=== PATIENT | female | born 1970 | race African-American/Black ===

== ENCOUNTER 2017-02-09 11:54 | Emergency (ER) | payer BC, OTHER ==
[2017-02-09 12:01] VITALS: BP 148/78; PULSE 73; TEMP 98.2; BMI 26.5
[2017-02-09] MEDS ORDERED: DIPHTH,PERTUSS(ACELL),TET 0.5 ML DISP.SYRIN IM ONE (12:43)
--- NOTE | 2017-02-09 12:49 | PDOC ---
History of Present Illness - General Chief Complaint: Injury Stated Complaint: RT THUMB LACERATION Time Seen by Provider: 02/09/17 12:11 History Source: Patient - History of Present Illness Timing/Duration: reports: this morning Past History - Past Medical History Allergies/Adverse Reactions: Allergies Allergy/AdvReac Type Severity Reaction Status Date / Time No Known Allergies Allergy Verified 02/09/17 11:56 Home Medications: Ambulatory Orders No Home Medications 0 dose .ROUTE UTDICT 11/06/12 Other medical history: NONE - Surgical History Abdominal Surgery: Yes (GASTRIC BYPASS,LT OVARY REMOVED) - Suicide/Smoking/Psychosocial Hx Smoking Status: No Smoking History: Never smoked Number of Cigarettes Smoked Daily: 0 Information on smoking cessation initiated: No Hx Alcohol Use: No Drug/Substance Use Hx: No Review of Systems - Review of Systems Integumentary: Yes: Other (nail injury) *Physical Exam - Vital Signs Last Vital Signs Temp Pulse Resp BP Pulse Ox 98.2 F 73 18 148/78 100 02/09/17 11:57 02/09/17 11:57 02/09/17 11:57 02/09/17 11:57 02/09/17 11:57 - Physical Exam General Appearance: Yes: Appropriately Dressed. No: Apparent Distress HEENT: positive: Normal Voice Respiratory/Chest: negative: Respiratory Distress Extremity: positive: Other (nail to R thumb intact w/ minimal bloody drainage from the lateral nail folds bilaterally and free edge of nail, no subungual hematoma) Integumentary: positive: Dry, Warm Neurologic: positive: Fully Oriented, Alert, Normal Mood/Affect Medical Decision Making - Medical Decision Making 02/09/17 12:44 46-year-old female, no significant history here with right thumb injury. Patient states while cleaning her stove this morning, a piece of sharp metal struck finger and has noted bleeding under nail of right thumb since. See exam Nail bed injury No subungal hematoma but minimal bloody drainage from lateral nail folds and free edge of nail, nail intact w/ no obvious injury to nail itself -Local wound care and compression in ED, no need for nail removal per d/w Dr Grayson in main ED -tetanus updated -Pt to return for wound check as needed 02/09/17 12:51 *DC/Admit/Observation/Transfer Diagnosis at time of Disposition: Nail bed injury - Discharge Dispostion Disposition: HOME Condition at time of disposition: Good - Patient Instructions Printed Discharge Instructions: DI for Nail Bed Injury Additional Instructions: Keep dressing in place for the next 24 hours to control bleeding. If symptoms worsen, please return to the emergency room
== END 2017-02-09 12:54 | disposition home or self-care (01) ==
LOC: JERFT 11:54
PROC: 3E0234Z Introduction of Serum, Toxoid and Vaccine into Muscle, Percutaneous Approach (ICD-10-PCS; principal; 2017-02-09)
DX: S61.001A Unspecified open wound of right thumb without damage to nail, initial encounter (principal); W26.8XXA Contact with other sharp object(s), not elsewhere classified, initial encounter; Y93.E9 Activity, other interior property and clothing maintenance; Y92.030 Kitchen in apartment as the place of occurrence of the external cause
CPT/HCPCS: 90715; 99281-25

== ENCOUNTER 2018-07-25 06:14 | Emergency (ER) | payer OTHER ==
[2018-07-25 06:30] VITALS: BP 136/92; PULSE 78; TEMP 98.5; BMI 27.6
[2018-07-25] MEDS ORDERED: IBUPROFEN 600 MG TABLET (FP) PO ONE ×2 (07:24→07:26)
--- NOTE | 2018-07-25 07:30 | PDOC ---
Attending Attestation - Resident Resident Name: RobbStephon - ED Attending Attestation I have performed the following: I have examined & evaluated the patient, The case was reviewed & discussed with the resident, I agree w/resident's findings & plan, Exceptions are as noted - HPI HPI: 07/25/18 07:26 47 year old female, [employer] employee, no pmh, s/p distant R bunion surgery p/w twisted R ankle. Was at work and twisted her right ankle on a step. C/o pain at lateral ankle. No numbness, weakness. Initially was able to ambulate on the foot but now reports pain when ambulating. Came into ER for an evaluation. - Physicial Exam PE: 07/25/18 07:27 GENERAL: Awake, alert, and fully oriented, in no acute distress HEAD: No signs of trauma EYES: EOMI, sclera anicteric, conjunctiva clear ENT: Auricles normal inspection, hearing grossly normal, nares patent NECK: Normal ROM, suppl EXTREMITIES: Normal range of motion, No clubbing or cyanosis. No cords, erythema, or tenderness RLE: 2+ DP pulse. Sensation intact throughout. No edema appreciated. TTP lateral malleolus. No joint instability. No tenderness to palpation at the navicular bone or the metatarsals. NEUROLOGICAL: Cranial nerves II through XII grossly intact. normal gait SKIN: Warm, Dry, normal turgor, no rashes or lesions noted. - Medical Decision Making 07/25/18 07:29 Vital Signs Temp Pulse Resp BP Pulse Ox 98.5 F 78 18 136/92 98 07/25/18 06:16 07/25/18 06:16 07/25/18 06:16 07/25/18 06:16 07/25/18 06:16 Impression: Right ankle sprain. Xray reviewed. no acute fractures. RICE therapy. Weight bearing as tolerated. 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 She needs to be cleared by [employer] prior to driving. Follow up with PMD and orthopedics.
--- NOTE | 2018-07-25 07:35 | PDOC ---
History of Present Illness - General Chief Complaint: Injury Stated Complaint: R ANKLE INJURY Time Seen by Provider: 07/25/18 07:06 History Source: Patient Exam Limitations: No Limitations - History of Present Illness Initial Comments: 07/25/18 07:42 47 yo female pmh of right meniscus repair and right bunion repair with rode presents to the ED after a slip and fall with R ankle pain. Pt states she was walking down her steps and due to snow and ice, she slipped down the steps causing her right ankle to plantar flex and "flip" over her ankle hearing a pop. Pt states she was able to ambulate after the fall a couple of steps but the pain became excessive and was unable to ambulate due to pain. 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 Denies loss of strength or sensation into right foot, denies new pain in the right prox fibula, denies pain or injury to any other area of her body Past History - Past Medical History Allergies/Adverse Reactions: Allergies Allergy/AdvReac Type Severity Reaction Status Date / Time No Known Allergies Allergy Verified 02/09/17 11:56 Home Medications: Ambulatory Orders No Home Medications 0 dose .ROUTE UTDICT 11/06/12 COPD: No - Surgical History Abdominal Surgery: Yes (GASTRIC BYPASS,LT OVARY REMOVED) - Suicide/Smoking/Psychosocial Hx Smoking Status: No Smoking History: Never smoked Number of Cigarettes Smoked Daily: 0 Hx Alcohol Use: Yes (ON OCCASSION) Drug/Substance Use Hx: No Review of Systems - Review of Systems Respiratory: No: Shortness of Breath Cardiac (ROS): No: Chest Pain ABD/GI: Yes: Other (denies ab pain) : No: Flank Pain Musculoskeletal: Yes: Other (pain in the right ankle). No: Back Pain Integumentary: No: Bruising, Change in Color Neurological: No: Numbness, Paresthesia, Weakness *Physical Exam - Vital Signs Last Vital Signs Temp Pulse Resp BP Pulse Ox 98.5 F 78 18 136/92 98 07/25/18 06:16 07/25/18 06:16 07/25/18 06:16 07/25/18 06:16 07/25/18 06:16 - Physical Exam General Appearance: Yes: Nourished, Appropriately Dressed. No: Apparent Distress HEENT: positive: EOMI Respiratory/Chest: positive: Lungs Clear Cardiovascular: positive: Regular Rhythm, Regular Rate Vascular Pulses: Dorsalis-Pedis (R): 4+, Doralis-Pedis (L): 4+ Gastrointestinal/Abdominal: positive: Flat, Soft. negative: Tenderness Musculoskeletal: positive: Normal Inspection Extremity: positive: Normal Capillary Refill, Normal Inspection. negative: Normal Range of Motion (decreased right ankle planter and dorsi flexion due to pain. No point tenderness to medial or lateral maleoli or to 5th metatarsal ), Coldness, Cyanosis, Pedal Edema, Swelling, Erythema Integumentary: positive: Normal Color, Dry, Warm Neurologic: positive: Fully Oriented, Alert, Normal Mood/Affect, Normal Response , Motor Strength 5/5 Moderate Sedation - Procedure Monitoring Vital Signs: Procedure Monitoring Vital Signs Temperature 98.5 F 07/25/18 06:16 Pulse Rate 78 07/25/18 06:16 Respiratory Rate 18 07/25/18 06:16 Blood Pressure 136/92 07/25/18 06:16 O2 Sat by Pulse Oximetry (%) 98 07/25/18 06:16 ED Treatment Course - Medications Given in the ED: ED Medications Discontinued Medications Generic Name Dose Route Start Last Admin Trade Name Freq PRN Reason Stop Dose Admin Ibuprofen 600 mg 07/25/18 07:24 07/25/18 07:29 Motrin - PO 07/25/18 07:25 600 mg ONCE ONE Administration Medical Decision Making - Medical Decision Making 07/25/18 08:07 47 yo female presents to the ED after slip and fall with right ankle pain. PMH s /p right bunion and right meniscal repair. Neurovascualrly intact Vitals WNL DDX INLT: fracture vs sprain vs ligament damage X ray negative for fracture, likely Pt given RICE precautions, JULIANNA bandage, crutches and Ortho for follow up Strict return precautions. Pt understands plan *DC/Admit/Observation/Transfer Diagnosis at time of Disposition: Ankle sprain Qualifiers: Encounter type: initial encounter Involved ligament of ankle: unspecified ligament Laterality: right Qualified Code(s): S93.401A - Sprain of unspecified ligament of right ankle, initial encounter - Discharge Dispostion Disposition: HOME Condition at time of disposition: Fair Decision to Admit order: No - Referrals Referrals: Deven Herrera [Primary Care Provider] - Mario,Cory A, DO [Staff Physician] - - Patient Instructions Printed Discharge Instructions: DI for Ankle Sprain, How to Prevent Falls Additional Instructions: Please see your Primary Doctor and make an appointment with Orthopedics within the next 48 hours. Rest, ice, compress and elevated the right leg for the next 4 days, use crutches and bare weight as tolerated. Return to the ER for new or concerning symptoms including but not limited to: loss of strength or sensation into your right foot, excessive pain not relieved by over the counter Motrin. Thank you - Post Discharge Activity Forms/Work/School Notes: Back to Work
== END 2018-07-25 07:40 | disposition home or self-care (01) ==
LOC: JER 06:14
DX: S93.401A Sprain of unspecified ligament of right ankle, initial encounter (principal); W00.1XXA Fall from stairs and steps due to ice and snow, initial encounter; Y93.01 Activity, walking, marching and hiking; Y92.89 Other specified places as the place of occurrence of the external cause; Y99.8 Other external cause status
CPT/HCPCS: 73610-TC-RT-FY; 73630-TC-RT-FY; 99281-25